=== PATIENT | female | born 1940 | race African-American/Black ===

== ENCOUNTER 2017-06-29 07:03 | Emergency (ER) | payer OTHER ==
[2017-06-29 07:28] VITALS: BMI 39.4
--- NOTE | 2017-06-29 07:37 | PDOC ---
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 She states that she woke up this morning and felt this left shoulder 5/10 discomfort that has no obvious exacerbating or relieving symptoms. The pain does not co-present with nausea, vomiting, diaphoresis, or sob. She has not tried any medication or treatment for her pain. Her daughter 3 weeks prior from a heart condition that she was told was due to her severe obesity (approximately 400lbs). She denies an fevers, chills, diarrhea, constipation, cough, or other sick symptoms. Her pest control operator is Dr. Thomas with whom she had a (per patient) clean nuclear stress test 6 months ago and normal echo 2 months ago. Her PCP is Dr. Contreras. 06/29/17 08:04 Past History - Past Medical History Allergies/Adverse Reactions: Allergies Allergy/AdvReac Type Severity Reaction Status Date / Time No Known Allergies Allergy Verified 06/29/17 07:18 Home Medications: Ambulatory Orders Allopurinol [Zyloprim -] 100 mg PO DAILY 06/29/17 Amlodipine Besylate 10 mg PO DAILY 06/29/17 Aspirin [Aspirin EC] 81 mg PO DAILY 06/29/17 Cholecalciferol (Vitamin D3) [Vitamin D3] 1,000 unit PO DAILY 06/29/17 Ezetimibe/Simvastatin [Vytorin 10-80 mg Tablet] 0.5 tab PO DAILY 06/29/17 Lisinopril [Prinivil -] 40 mg PO DAILY 06/29/17 Metoprolol Succinate [Toprol Xl] 100 mg PO DAILY 06/29/17 Valsartan/Hydrochlorothiazide [Valsartan-Hctz 160-12.5 mg Tab] 1 each PO DAILY 06/29/17 HTN: Yes Hypercholesterolemia: Yes Other medical history: arithritis - Surgical History Abdominal Surgery: Yes (lt ovary removed) - Psycho/Social/Smoking Cessation Hx Anxiety: No Suicidal Ideation: No Smoking History: Former smoker Have you smoked in the past 12 months: No Information on smoking cessation initiated: No Hx Alcohol Use: No Drug/Substance Use Hx: No Substance Use Type: None Review of Systems - Review of Systems Constitutional: No: Chills, Diaphoresis, Fever HEENTM: No: Blurred Vision, Recent change in vision, Double Vision Respiratory: No: Cough, Shortness of Breath, SOB with Exertion Cardiac (ROS): No: Chest Pain, Edema, Lightheadedness ABD/GI: No: Constipated, Diarrhea, Nausea, Poor Appetite : No: Frequency, Hematuria Musculoskeletal: Yes: Joint Pain Integumentary: No: Bruising, Erythema Neurological: No: Headache Psychiatric: Yes: Stressors *Physical Exam - Vital Signs Last Vital Signs Temp Pulse Resp BP Pulse Ox 97.7 F 72 18 137/57 100 06/29/17 07:18 06/29/17 07:18 06/29/17 07:18 06/29/17 07:18 06/29/17 07:18 - Physical Exam General Appearance: Yes: Nourished, Appropriately Dressed. No: Apparent Distress HEENT: positive: EOMI, DEB, Normal ENT Inspection, Normal Voice Neck: positive: Trachea midline, Normal Thyroid, Supple. negative: Tender, Rigid Respiratory/Chest: positive: Lungs Clear, Normal Breath Sounds. negative: Chest Tender, Respiratory Distress Cardiovascular: positive: Regular Rhythm, Regular Rate, S1, S2. negative: Edema , JVD, Murmur Gastrointestinal/Abdominal: positive: Normal Bowel Sounds, Flat, Soft. negative : Tender, Organomegaly Musculoskeletal: positive: Other (Tender to palpation over the left acromioclavicular and glenohumeral joint.). negative: Normal Inspection Extremity: positive: Normal Range of Motion (Pain in left shoulder with resistance agaisnt abduction of joint), Tender (Per above) Integumentary: positive: Normal Color, Dry, Warm Neurologic: positive: Fully Oriented, Alert, Normal Mood/Affect Heart Score/ECG Review - History History: Slightly suspicious - Electrocardiogram EKG: Normal - Age Age: >/= 65 - Risk Factors Risk Factors Heart Score: Yes Hx Hypercholesterolemia, Yes Hx Hypertension, Yes Hx Obesity Based on the list above the patient has:: >/=3 risk factors or Hx atherosclerotic disease - Troponin Troponin: </= normal limit - Score Heart Score - Total: 4 - ECG Intrepretation Rhythm: Regular Rhythm - [place]: Normal ED Treatment Course - LABORATORY CBC & Chemistry Diagram: 06/29/17 08:10 06/29/17 08:10 Medical Decision Making - Medical Decision Making 77 year old female with PMH o HTN, obesity, and HLD presenting with left shoulder discomfort. Given the non-concerning presentation of her pain and corroborating physical exam , this is most likely a musculoskeletal pain and acute exacerbation of her left shoulder arthritis. However, her HTN, HLD, obesity and recent family cardiac history puts her overall clinical picture in the concerning category for which she should be worked up further. Her self reported nuclear stress and recent echo were WNL so this is comforting. EKG appeared grossly normal without signs of ischemia. Will get CBC, CMP, troponin, D-dimer, CXR, and left shoulder film. Placed hot pack on shoulder. 06/29/17 08:27 06/29/17 16:33 D-Dimer was elevated at 3K so VQ scan ordered because of CKD (creatinine 1.8) and was negative. Spoke to Dr. Thomas who would be down in an hour but the patient did not want to wait so he was OK with her calling the office and setting up an appointment. Patient DC'd with return precautions. 06/29/17 16:35 *DC/Admit/Observation/Transfer Diagnosis at time of Disposition: Left shoulder pain - Discharge Dispostion Disposition: HOME Condition at time of disposition: Stable Admit: No - Referrals Referrals: Joanna Contreras MD [Primary Care Provider] - - Patient Instructions Printed Discharge Instructions: DI for Atypical Chest Pain Additional Instructions: You were seen for chest pain and we ran some routine blood tests. We were concerned for a blood clot in your lungs. We scanned your lungs and there was no clot. We also looked at your EKG and heart enzymes and there was no damage to your heart. Please follow up with your pest control operator as discussed as he would like to see you sooner in the office. Please return to the ED if you have worsening chest pain, nausea, vomiting, fevers, or other symptoms that don't get better with some rest or medications. - Attestations Physician Attestion: 06/29/17 16:47 I, Dr. Derrick Alejo, attest that this document has been prepared under my direction and personally reviewed by me in its entirety. I further attest, that it accurately reflects all work, treatment, procedures and medical decision -making performed by me.
--- NOTE | 2017-06-29 07:45 | PDOC ---
Attending Attestation - HPI HPI: 06/29/17 07:48 Patient is a 77 year old female with a significant past medical history of HTN and prior DVT here with chest pressure. Patient states that the pain is non radiating with no alleviating or exacerbating factors. Patient states that she is under a lot of stress after her daughter 3 weeks ago from [place]. She denies any SOB or leg swelling. She denies any fever, chills or cough. - Physicial Exam PE: 06/29/17 07:49 GENERAL: Awake, alert, and fully oriented, in no acute distress HEAD: No signs of trauma EYES: PERRLA, EOMI, sclera anicteric, conjunctiva clear ENT: Auricles normal inspection, nares patent, Moist mucosa NECK: Normal ROM, supple, no lymphadenopathy, JVD, or masses LUNGS: Breath sounds equal, clear to auscultation bilaterally. No wheezes, and no crackles HEART: Regular rate and rhythm, normal S1 and S2, no murmurs, rubs or gallops ABDOMEN: Soft, nontender, normoactive bowel sounds. No guarding, no rebound. No masses EXTREMITIES: Normal range of motion, no edema. No clubbing or cyanosis. No cords, erythema, or tenderness NEUROLOGICAL: No focal deficit. Normal speech SKIN: Warm, Dry, normal turgor, no rashes or lesions noted. - Medical Decision Making 06/29/17 07:49 Documentation prepared by Rg Mosquera, acting as medical assistant for Evelia Alvarado MD. <Rg Mosquera - Last Filed: 06/29/17 07:48> - Resident Resident Name: Derrick Alejo - ED Attending Attestation I have performed the following: I have examined & evaluated the patient, The case was reviewed & discussed with the resident, I agree w/resident's findings & plan, Exceptions are as noted - HPI HPI: 06/29/17 07:43 77 yo F with HTN and prior PE/ DVT many years ago here with c/o chest pain, and not feeling well. states under stress from daughter 3 weeks ago from [place]. differential angina, PE infection, gerd, plan ekg cxr asa crow admit to tele 06/29/17 08:09 - Physicial Exam PE: 06/29/17 08:10 x - Medical Decision Making 06/29/17 08:10 77 yo F with HTN and prior PE/ DVT many years ago here with c/o chest pain, and not feeling well. states under stress from daughter 3 weeks ago from [place]. differential angina, PE infection, gerd, plan ekg cxr [place] admit to tele 06/29/17 08:11 pt with h/o nuclear stress 6 mo ago, reportedly normal. and echo 2 mo ago normal. see fieldwork coordinator DR. Fulton. DVT was provoked while on control at age 29. 06/29/17 15:54 vq negative. pt awaiting repeat troponin and evaluation by Dr fulton her in ED. first enzym negative. 06/29/17 16:52 pt not wanting to wait for cardiology eval in ed. recent cardiac workup and stress negative. rpt trop negative. vq negative. will followup with [facility] outpt. <Evelia Alvarado - Last Filed: 06/29/17 16:53> Heart Score/ECG Review #1 General ECG Interpretation: Sinus Rhythm, Normal Rate (73), Normal Intervals, No acute ischemic changes <Evelia Alvarado - Last Filed: 06/29/17 16:53>
[2017-06-29] MEDS ORDERED: ASPIRIN 81 MG CHEWABLE TABLETS PO ONE (07:58)
[2017-06-29] MEDS ORDERED: ASPIRIN 81 MG CHEWABLE TABLETS ONE (08:07)
[2017-06-29 08:35] LABS: EOSINOPHIL 2.8 % (0-4.5); MCH 28.3 pg (25.7-33.7); MCHC 32.6 g/dl (32.0-36.0); MEAN PLT VOLUME 7.5 fl (7.5-11.1); NEUTROPHILS 54.6 % (42.8-82.8); PLATELET COUNT 250 K/MM3 (134-434); RDW 15.1 % (11.6-15.6)
[2017-06-29 09:06] LABS: ALBUMIN 3.7 g/dl (3.4-5.0); ANION GAP 5 (8-16); BILIRUBIN,TOTAL 0.3 mg/dL (0.2-1.0); CALCIUM 9.1 mg/dL (8.5-10.1); CO2 30 mmol/L (21-32); CREATININE 1.8 mg/dL (0.55-1.02); GLUCOSE,RANDOM 98 mg/dL (74-106); SGOT/AST 12 U/L (15-37); SGPT/ALT 19 U/L (12-78); TOT PROT 7.2 g/dl (6.4-8.2)
[2017-06-29 09:08] LABS: ALK PHOS 69 U/L (45-117); CPK 102 IU/L (26-192); TROPONIN I < 0.02 ng/ml (0.00-0.05)
[2017-06-29] MEDS ORDERED: SODIUM CHLORIDE 0.9% 1000 ML INFUS.BAG IV ONE (10:27)
--- NOTE | 2017-06-29 12:49 | EKG ---
Test Reason : Blood Pressure : / mmHG Vent. Rate : 073 BPM Atrial Rate : 073 BPM P-R Int : 206 ms QRS Dur : 088 ms QT Int : 388 ms P-R-T Axes : 072 016 054 degrees QTc Int : 427 ms NORMAL SINUS RHYTHM NORMAL ECG WHEN COMPARED WITH ECG OF 17-APR-2006 08:27, NO SIGNIFICANT CHANGE WAS FOUND Confirmed by RUBEN ROSA MD ([id number]) on 06/29/2017 12:48:57 PM Referred By: Confirmed By:RUBEN ROSA MD
[2017-06-29 13:06] VITALS: TEMP 98
[2017-06-29 13:07] VITALS: BP 138/85; PULSE 58
[2017-06-29 13:11] LABS: INR 1.01 (0.82-1.09); PROTHROMBIN TIME (PATIENT) 11.1 SEC (9.98-11.88)
[2017-06-29] MEDS ORDERED: VANCOMYCIN 1 GRAM (PRE-DOCKED) 250 ML IVPB ONE (14:47)
[2017-06-29 16:19] LABS: CPK 121 IU/L (26-192); TROPONIN I < 0.02 ng/ml (0.00-0.05)
== END 2017-06-29 16:56 | disposition home or self-care (01) ==
LOC: JER 07:03
PROC: 3E0337Z Introduction of Electrolytic and Water Balance Substance into Peripheral Vein, Percutaneous Approach (ICD-10-PCS; principal; 2017-06-29)
DX: M25.511 Pain in right shoulder (principal); I10 Essential (primary) hypertension; E78.5 Hyperlipidemia, unspecified; Z86.718 Personal history of other venous thrombosis and embolism; Z86.711 Personal history of pulmonary embolism; Z79.82 Long term (current) use of aspirin; Z87.891 Personal history of nicotine dependence
CPT/HCPCS: 36415; 71020-TC; 73030-TC-LT; 78582-TC; 80053; 84484; 85025; 85379; 85610; 93005; 93010; 93970-TC; 99285-25; A9539; A9540

== ENCOUNTER 2023-03-07 14:58 | Emergency (ER) | payer OTHER ==
[2023-03-07 15:19] VITALS: BP 131/53; PULSE 73; RESP 18; TEMP 98; BMI 32.0
== END 2023-03-07 16:23 | disposition home or self-care (01) ==
LOC: JERFT 14:58
DX: B02.9 Zoster without complications (principal)
CPT/HCPCS: 99283-25

== ENCOUNTER 2023-07-29 04:40 | Day surgery (SDC) | payer OTHER ==
[2023-07-25 16:47] VITALS: BMI 32.3
[2023-07-29 09:38] VITALS: TEMP 97.8
[2023-07-29 10:05] VITALS: RESP 16
[2023-07-29 10:17] VITALS: BP 111/53; PULSE 76
== END 2023-07-29 10:12 | disposition home or self-care (01) ==
LOC: JASU-ENDO 04:40
PROVIDERS: ATTEND Internal Medicine Gastroenterology
PROC: 0DBN8ZX Excision of Sigmoid Colon, Via Natural or Artificial Opening Endoscopic, Diagnostic (ICD-10-PCS; principal; 2023-07-29 08:45)
DX: Z12.11 Encounter for screening for malignant neoplasm of colon (principal); K63.5 Polyp of colon; K64.4 Residual hemorrhoidal skin tags; K64.8 Other hemorrhoids; K57.30 Diverticulosis of large intestine without perforation or abscess without bleeding
CPT/HCPCS: 88305-TC

== ENCOUNTER 2024-06-15 04:21 | Day surgery (SDC) | payer OTHER ==
[2024-06-14 09:55] VITALS: BMI 32.9
[2024-06-15] MEDS ORDERED: PROPOFOL 20 ML ONE (07:15)
[2024-06-15] MEDS ORDERED: MIDAZOLAM HCL 2 MG/2 ML SINGLE DOSE VIAL ONE (07:15)
[2024-06-15] MEDS ORDERED: ONDANSETRON 4 MG/2 ML VIAL ONE (07:44)
[2024-06-15] MEDS ORDERED: GENTAMICIN SO4 80 MG/2 ML VIAL ONE (07:44)
[2024-06-15] MEDS ORDERED: LIDOCAINE HCL/PF 2% SDV 5ML VIAL ONE (07:44)
[2024-06-15] MEDS ORDERED: DEXAMETHASONE SOD PHOSPHATE 4 MG/1 ML VIAL ONE (07:44)
[2024-06-15] MEDS ORDERED: ceFAZolin SODIUM 1 GM VIAL ONE (07:44)
[2024-06-15] MEDS: ceFAZolin SODIUM 1 GM VIAL IVPB ONE (07:58)
[2024-06-15] MEDS: GENTAMICIN SO4 80 MG/2 ML VIAL IVPB ONE (07:59)
[2024-06-15] MEDS ORDERED: FUROSEMIDE 40 MG/4 ML INJECTABLE VIAL ONE (08:11)
[2024-06-15] MEDS ORDERED: SEVOFLURANE 250 ML BTL ONE (08:25)
[2024-06-15] MEDS ORDERED: oxyCODONE HCL 5 MG TABLET PO PRN (08:58)
[2024-06-15] MEDS ORDERED: DEXTROSE 5%-0.45% SALINE 1,000 ML IV SCH (09:00)
[2024-06-15] MEDS ORDERED: ONDANSETRON 4 MG/2 ML VIAL IVPUSH PRN (09:12)
[2024-06-15] MEDS ORDERED: LACTATED RINGERS SOLUTION 1,000 ML IV SCH (09:15)
[2024-06-15] MEDS ORDERED: ACETAMINOPHEN INJECTION 100 ML IVPB ONE (09:50)
[2024-06-15] MEDS: ACETAMINOPHEN 1000 MG/100 ML BAG IVPB PRN (09:53)
[2024-06-15] MEDS ORDERED: OXYBUTYNIN CHLORIDE 5 MG TABLET PO ONE (10:51)
[2024-06-15] MEDS: OXYBUTYNIN CHLORIDE 5 MG TABLET PO ONE (11:19)
[2024-06-15 15:11] VITALS: BP 128/54; PULSE 56; RESP 20
[2024-06-15 15:13] VITALS: TEMP 97.1
== END 2024-06-15 12:07 | disposition home or self-care (01) ==
LOC: JASU-SURG 04:21
PROVIDERS: ATTEND Urology
PROC: 0TC18ZZ Extirpation of Matter from Left Kidney, Via Natural or Artificial Opening Endoscopic (ICD-10-PCS; principal; 2024-06-15 07:30)
PROC: 0T778DZ Dilation of Left Ureter with Intraluminal Device, Via Natural or Artificial Opening Endoscopic (ICD-10-PCS; 2024-06-15 07:30)
PROC: 0T778ZZ Dilation of Left Ureter, Via Natural or Artificial Opening Endoscopic (ICD-10-PCS; 2024-06-15 07:30)
DX: N20.0 Calculus of kidney (principal); N13.5 Crossing vessel and stricture of ureter without hydronephrosis
CPT/HCPCS: 36415; 76000-TC-FY; 82360; 88300-TC; 94760; C1758; C1769; C2617; J0131